=== PATIENT | female | born 1975 | race Caucasian/White ===

== ENCOUNTER → 2018-10-26 | Outpatient (CLI) | payer OTHER ==
[~2018-10-26] MED LIST: CIPRO EYE OP; DICL500C PO; MULT-208 PO
== END | disposition home or self-care (01) ==
LOC: CFH 14:45
PROVIDERS: ATTEND Family Medicine
DX: J92.9 Pleural plaque without asbestos (principal); J98.4 Other disorders of lung; N80.8 Other endometriosis
CPT/HCPCS: 71250